=== PATIENT | female | born 1950 | race Caucasian/White ===

== ENCOUNTER 2020-02-09 13:23 | Outpatient (REF) | payer MEDICARE, SELFPAY ==
--- NOTE | 2020-02-09 13:31 | MM_ITS ---
EXAMINATION: MM SCREENING DIGITAL BREAST TOMOSYNTHESIS, BILATERAL CLINICAL INFORMATION: Screening. Asymptomatic. The lifetime risk of breast cancer based on the Tyrer-Cuzick Model is 4%. COMPARISON: Mammography: 11/18/2018, 09/23/2017 TECHNIQUE: Digital breast tomosynthesis is performed in both the craniocaudal and mediolateral oblique views along with computer-aided detection (CAD). Synthesized 2D images are generated from the tomosynthesis. Additional exaggerated right CC view is provided. FINDINGS: There are scattered areas of fibroglandular density (ACR BI-RADS breast composition Category b). There are no significant masses, abnormal calcifications, or other abnormalities. There is biopsy clip marker 3:00 left breast. Scattered benign punctate round calcifications are again noted in each breast. No significant changes. MM/MM tomosynthesis screening BI IMPRESSION: No mammographic evidence of malignancy. ASSESSMENT: BI-RADS 2: Benign RECOMMENDATION: Routine annual mammography screening. This patient's information was entered into a reminder system with a target due date for their next mammogram.
--- NOTE | 2020-02-09 13:32 | MM_ITS ---
EXAMINATION: BONE DENSITOMETRY CLINICAL INDICATION: Asymptomatic menopausal state. COMPARISON: None (current study represents initial baseline exam). TECHNIQUE: Using a Advaction DXA System (software version: 13.1) manufactured by [employer], dual-energy x-ray absorptiometry was performed of the lumbar spine and left hip. The images are of good technical quality. Summary results are attached. FINDINGS: AP SPINE L1-L2 (excluding L3 and L4): The data of L1-L4 has been changed to exclude the L3 and L4 vertebral bodies, because levocurvature and degenerative changes at these levels may cause overestimation of lumbar spine density. BMD 0.918 g/cm2, Z-score -0.9, T-score -2.1, osteopenia. LEFT FEMUR, NECK: BMD 0.884 g/cm2, Z-score 0.2, T-score -1.1, osteopenia. LEFT FEMUR, TOTAL: BMD 1.022 g/cm2, Z-score 1.1, T-score 0.1, normal. IDENTIFIED RISK FACTORS: Low calcium, family history (parental hip fracture), menopause, hysterectomy, bilateral oophorectomy, secondary osteoporosis. HISTORY OF FRACTURE: None listed. MEDICATIONS: None listed. MM/XR DEXA axial skeleton IMPRESSION: 1. DIAGNOSIS: Osteopenia based on the lowest T-score value of -2.1 in the lumbar spine applying World Health Organization criteria. 2. 10-YEAR FRACTURE RISK PREDICTION, FRAX: Major osteoporotic fracture (clinical spine, forearm, hip or shoulder) 14.1%. Hip fracture 1.2%. 3. Treatment Recommendations: NOF guidelines recommend consideration for treatment in postmenopausal women and men age 50 and older presenting with the following: -A hip or vertebral (clinical or morphometric) fracture. -T-score less than or equal to -2.5 at the femoral neck or spine after appropriate evaluation to exclude secondary causes. -Low bone mass at the hip or spine and a 10-year fracture probability by FRAX of greater than or equal to 3% for hip fracture or greater than or equal to 20% for major osteoporotic fracture based on the [place] adapted WHO algorithm. 4. Other Recommendations: All treatment decisions require clinical judgment and consideration of individual patient factors, including patient preferences, comorbidities, previous drug use, risk factors not captured in the FRAX model (e.g. frailty, falls, vitamin D deficiency, increased bone turnover, interval significant decline in bone density) and possible under or overestimation of fracture risk by FRAX. Additional medical evaluation for secondary cause of low bone mineral density may be appropriate. FUTURE SCAN RECOMMENDATION: People with diagnosed cases of osteoporosis or at high risk for fracture should have regular bone mineral density tests. For patients eligible for Medicare, routine testing is allowed once every 2 years. The testing frequency can be increased to one year for patients who have rapidly progressing disease, those who are receiving or discontinuing medical therapy to restore bone mass, or have additional risk factors.
== END 2020-02-09 13:24 | disposition home or self-care (01) ==
LOC: HO.MAMMO 13:23
PROVIDERS: PCP Nurse Practitioner Family; Visit Provider Nurse Practitioner Family
DX: Z13.820 Encounter for screening for osteoporosis (principal); Z78.0 Asymptomatic menopausal state; Z90.710 Acquired absence of both cervix and uterus; Z90.722 Acquired absence of ovaries, bilateral; Z12.31 Encounter for screening mammogram for malignant neoplasm of breast
CPT/HCPCS: 77063; 77067; 77080

== ENCOUNTER 2022-01-17 14:18 | Outpatient (REF) | payer MEDICARE, SELFPAY ==
--- NOTE | ~2022-01-17 | MM_ITS ---
EXAMINATION: MM SCREENING DIGITAL BREAST TOMOSYNTHESIS, BILATERAL CLINICAL INFORMATION: Screening. Asymptomatic. COMPARISON: Mammography: 02/09/2020, 11/18/2018, 09/23/2017 TECHNIQUE: Digital breast tomosynthesis is performed in both the craniocaudal and mediolateral oblique views along with computer-aided detection (CAD). Synthesized 2D images are generated from the tomosynthesis. FINDINGS: There are scattered areas of fibroglandular density (ACR BI-RADS breast composition Category b). There are no significant masses, abnormal calcifications, or other abnormalities. Parenchymal pattern is similar to prior studies. Small stable circumscribed nodule/intramammary node again noted mid upper outer right breast. There is a biopsy clip marker again noted posterior outer left breast. No developing density or architectural abnormality. MM/MM tomosynthesis screening BI IMPRESSION: No mammographic evidence of malignancy. ASSESSMENT: BI-RADS 2: Benign RECOMMENDATION: Routine annual mammography screening. This patient's information was entered into a reminder system with a target due date for their next mammogram.
== END 2022-01-17 14:19 | disposition home or self-care (01) ==
LOC: HO.MAMMO 14:18
PROVIDERS: PCP Nurse Practitioner Family; Visit Provider Nurse Practitioner Family
DX: Z12.31 Encounter for screening mammogram for malignant neoplasm of breast (principal)
CPT/HCPCS: 77063; 77067

== ENCOUNTER 2023-01-28 10:14 | Outpatient (REF) | payer MEDICARE, SELFPAY ==
--- NOTE | ~2023-01-28 | MM_ITS ---
EXAMINATION: MM SCREENING DIGITAL BREAST TOMOSYNTHESIS, BILATERAL CLINICAL INFORMATION: Screening. Asymptomatic. COMPARISON: Mammography: This study is compared with prior exams dating back to 2017. TECHNIQUE: Digital breast tomosynthesis is performed in both the craniocaudal and mediolateral oblique views along with computer-aided detection (CAD). Synthesized 2D images are generated from the tomosynthesis. FINDINGS: There are scattered areas of fibroglandular density (ACR BI-RADS breast composition Category b). There are no significant masses, abnormal calcifications, or other abnormalities. There is a tissue marker in the left breast from prior benign percutaneous biopsy. MM/MM tomosynthesis screening BI IMPRESSION: No mammographic evidence of malignancy. ASSESSMENT: BI-RADS BI-RADS 2 - Benign Findings RECOMMENDATION: Routine annual mammography screening. 1 year F/U This examination should not preclude the clinical evaluation of a suspicious palpable abnormality. This patient's information was entered into a reminder system with a target due date for their next mammogram.
== END 2023-01-28 10:15 | disposition home or self-care (01) ==
LOC: HO.MAMMO 10:14
PROVIDERS: PCP Nurse Practitioner Family; Visit Provider Nurse Practitioner Family
DX: Z12.31 Encounter for screening mammogram for malignant neoplasm of breast (principal)
CPT/HCPCS: 77063; 77067

== ENCOUNTER → 2023-01-28 10:15 | Outpatient (BNV) | payer MEDICARE, SELFPAY | PROVIDERS: PCP Nurse Practitioner Family; Visit Provider Radiology Diagnostic Radiology | DX: Z12.31 Encounter for screening mammogram for malignant neoplasm of breast (principal) | CPT/HCPCS: 77063; 77067 ==

== ENCOUNTER 2024-02-25 12:40 | Outpatient (REF) | payer MEDICARE, SELFPAY ==
--- NOTE | ~2024-02-25 | MM_ITS ---
EXAMINATION: BONE DENSITOMETRY CLINICAL INDICATION: Other specified disorders of bone density and structure, unspecified site. COMPARISON: Baseline BD dated 02/09/2020. TECHNIQUE: Using a Loopcam DXA System (software version: 13.1) manufactured by [employer], dual-energy x-ray absorptiometry was performed of the lumbar spine and left hip. The images are of good technical quality. Summary results are attached. FINDINGS: LEFT FEMUR, NECK: Current: BMD 0.897 g/cm2, Z-score 0.5, T-score -1.0, normal. Baseline: BMD 0.884 g/cm2. LEFT FEMUR, TOTAL: Current: BMD 0.997 g/cm2, Z-score 1.2, T-score -0.1, normal, 2.4% decrease from baseline (<5% change is not significant). Baseline: BMD 1.022 g/cm2. AP SPINE L1-L2 (excluding L3 and L4): The data of L1-L4 has been changed to exclude the L3 and L4 vertebral bodies, because at these levels may cause overestimation of lumbar spine density. Current: BMD 1.002 g/cm2, Z-score 0.0, T-score -1.4, osteopenia, 9.2% increase from baseline (<5% change is not significant). Baseline: BMD 0.918 g/cm2. IDENTIFIED RISK FACTORS: Height loss, low calcium intake, parental hip fracture, menopause, hysterectomy, bilateral oophorectomy. HISTORY OF FRACTURE: None listed. MEDICATIONS: None listed. MM/XR DEXA axial skeleton IMPRESSION: 1. DIAGNOSIS: Osteopenia based on the lowest T-score value of -1.4 in the lumbar spine applying World Health Organization criteria. 2. 10-YEAR FRACTURE RISK PREDICTION, FRAX: Major osteoporotic fracture (clinical spine, forearm, hip or shoulder) 13.3%. Hip fracture 2.8%. 3. Treatment Recommendations: NOF guidelines recommend consideration for treatment in postmenopausal women and men age 50 and older presenting with the following: -A hip or vertebral (clinical or morphometric) fracture. -T-score less than or equal to -2.5 at the femoral neck or spine after appropriate evaluation to exclude secondary causes. -Low bone mass at the hip or spine and a 10-year fracture probability by FRAX of greater than or equal to 3% for hip fracture or greater than or equal to 20% for major osteoporotic fracture based on the [place] adapted WHO algorithm. 4. Other Recommendations: All treatment decisions require clinical judgment and consideration of individual patient factors, including patient preferences, comorbidities, previous drug use, risk factors not captured in the FRAX model (e.g. frailty, falls, vitamin D deficiency, increased bone turnover, interval significant decline in bone density) and possible under or overestimation of fracture risk by FRAX. Additional medical evaluation for secondary cause of low bone mineral density may be appropriate. FUTURE SCAN RECOMMENDATION: People with diagnosed cases of osteoporosis or at high risk for fracture should have regular bone mineral density tests. For patients eligible for Medicare, routine testing is allowed once every 2 years. The testing frequency can be increased to one year for patients who have rapidly progressing disease, those who are receiving or discontinuing medical therapy to restore bone mass, or have additional risk factors. Electronically signed by: Deena Locke MD 02/25/2024 04:18 PM LEONARDO GORDILLO
== END 2024-02-25 12:41 | disposition home or self-care (01) ==
LOC: HO.MAMMO 12:40
PROVIDERS: PCP Nurse Practitioner Primary Care; Visit Provider Nurse Practitioner Primary Care
DX: Z12.31 Encounter for screening mammogram for malignant neoplasm of breast (principal); Z13.820 Encounter for screening for osteoporosis; Z78.0 Asymptomatic menopausal state; M85.89 Other specified disorders of bone density and structure, multiple sites
CPT/HCPCS: 77063; 77067; 77080

== ENCOUNTER → 2024-02-25 12:45 | Outpatient (BNV) | payer MEDICARE, SELFPAY | PROVIDERS: PCP Nurse Practitioner Primary Care; Visit Provider Internal Medicine | DX: Z12.31 Encounter for screening mammogram for malignant neoplasm of breast (principal) | CPT/HCPCS: 77063; 77067 ==

== ENCOUNTER 2025-03-12 06:31 | Emergency (ER) | payer MEDICARE, SELFPAY ==
--- NOTE | ~2025-03-12 | XR_ITS ---
CLINICAL HISTORY: cough 1 view chest Comparison: None Findings: Cardiac and mediastinal contours are normal. Mild interstitial prominence with scattered peribronchial thickening. No focal consolidation. No effusion. No pneumothorax. No acute osseous finding. Impression: Mild interstitial prominence with scattered peribronchial thickening. No focal consolidation. This document has been electronically signed by: Joey Vázquez MD on 03/12/2025 07:08:07
[2025-03-12 06:34] VITALS: BP 140/65; PULSE 98; RESP 20; TEMP 37.9; O2SAT 95; BMI 31.2
[2025-03-12 07:26] LABS: Resp Syncy Virus RNA Qual PCR NEGATIVE (Negative); SARS COV2 PCR INHOUSE NEGATIVE (Negative)
--- OUTSIDE RECORDS SUMMARY | 2025-03-12 08:09 | XMS_ITS | Patient Health Record ---
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 Name Role Phone Ajith Spring MD Primary Care Provider Abdiel Pressley [phone] Allergies Allergen (clinical drug ingredient) Drug/Non Drug Allergy documented on EMR Reaction Allergy Type Onset Date Status acetaminophen / oxycodone Percocet Unknown Drug Allergy Active Reason For Referral No Information Medications Medication SIG (Take, Route, Fr equency, Duration) Notes Start Date End Date Status Omeprazole 20mg Ac tive Lisinopril 10mg Acti ve Bentyl 20 MG Tablet 1 tablet Orally Four times a day; Duration: 30 day(s) 02/28/2011 Active Simvastatin 40mg Act latricia Sertraline HCl 100mg Active metFORMIN HCl 500mg Active Social History Tobacco Use: Social History Observation Description Date Details (start date - stop date) Current Smoker NA - NA Social History Drugs/Alcohol: Social Info Question Answer Notes Alcohol Screen Did you have a drink containing alcohol in the past year? Yes Points 1 Interpretation Negative How many drinks did you have on a typical day when you were drinking in the past year? 1 or 2 drinks (0 point) How often did you have a drink containing alcohol in the past year? Monthly or less (1 point) Tobacco Use: Social Info Question Answer Notes Tobacco Use/Smoking Patient is a current smoker How many cigarettes a day do you smoke? 5 or less How often do you smoke cigarettes? some days, but not every day Section Notes: Tobacco use one to 2 cigaret mukund, one time per week. Alcohol use, one drink every 6 months. Problems Problem Type SNOMED Code ICD Code Onset Dates Problem Status W/U Status Risk Notes Problem Hemorrhage of rectum and anus (340578872) Hemorrhage of rectum and anus (569.3) Active confirmed Problem Generalized abdominal pain (957934209) Abdominal pain, generalized (789.07) Active confirmed Plan Of Treatment No Information Insurance Providers Payer Name Payer Address Payer Phone Subscriber Number Group Number Insured Name Patient Relationship to Insured Coverage Start Date Coverage End Date [facility] [employer] CLAIMS [address] [place] [address] [id number] Self - patient is the insured Medical (General) History Medical History History ICD Code diabetes mellitus hypertension gastroesophageal reflux disease depression elevated cholesterol Surgical History Surgery Date(Month/Year) total hysterectomy in 2002 for precancer ous cells carpal tunnel repair foot surgery
--- OUTSIDE RECORDS SUMMARY | 2025-03-12 08:09 | XMS_ITS | Encounter Summary ---
Author Organization [facility] Address [address] [place] [address] [address] [place] [address] Phone Care Team Providers Care Senior Manager Name Role Phone Edwin Tovar CNP Primary Care Provider Encounter Details Date Type Department Care Team (Latest Contact Info) Description 05/15/2023 Ancillary Orders [facility] [address] [place] [address] Edwin Tovar, [place] [address] [facility] [place] [address] [email or web address] Pre-operative cardiovascular examination (Primary Dx); Type 2 diabetes mellitus without complication, with long-term current use of insulin; Arteriosclerotic cardiovascular disease; Bilateral hip pain; Memory changes; ALEJANDRA on CPAP; Bilateral hip pain Social History Tobacco Use Types Packs/Day Years Used Date Smoking Tobacco: Some Days Cigarettes 0 20 Started: 01/01/1995; Last attempted to quit: 01/01/2015 Smokeless Tobacco: Never Comments:Occasionally 4 cigarettes weekly and someday non, depends on stress level note 02/24/23 Alcohol Use Standard Drinks/Week Comments Yes 0 (1 standard drink = 0.6 oz pur e alcohol) 1-2 drinks, monthly or less Education Answer Date Recorded Are you interested in more education? Not on adalberto e 07/11/2022 Are you concerned about learning? Not on file 07/11/2022 No 07/11/2022 No 07/11/2022 Digital Access Answer Date Recorded No 08/06/2022 No 08/06/2022 Reliable internet access at home? Not on file 08/06/2022 Device with a working camera? Not on file Comments Unknown Sex and Gender Information Value Date Recorded Sex Assigned at Female 08/24/2020 5:08 PM EDT Legal Sex Female 9:59 PM EDT Gender Identity Female 08/24/2020 5:08 PM EDT Sexual Orientation Straight 08/24/2020 5: 08 PM EDT documented as of this encounter Plan of Treatment Upcoming Encounters Date Type Department Care Team (Late st Contact Info) Description 01/27/2025 Procedure Pass [facility], [address] [address] 04/25/2025 1:30 PM EST Appointment [address] [address] Edwin Tovar, MOUNTAIN OR GLACIER GUIDE [address] [place] [address], [address] [place] [address] 07/28/2025 2:00 PM EDT Office Visit [facility] [address] [place] [address] Edwin Tovar, MOUNTAIN [employer] GLACIER GUIDE [address] [place] [address], [address] [place] [id number] [email or web address] documented as of this encounter Results * XR HIPS 2+ VW EA BILAT PLUS PELVIS (05/15/2023 1:53 PM EST) Anatomical Region Laterality Modality Hip, Pelvis Computed Radiogr aphy 05/16/2023 3:05 PM EST Impressions 05/16/2023 3:07 PM EST Mild lateral acetabular bony proliferative change. Possible pincer-type acetabular morphology. Left-sided soft tissue mineralization around the greater trochanter, could reflect calcific gluteal tendinopathy. Partially visualized lumbar spine degenerative change. Narrative 05/16/2023 3:07 PM EST XR HIPS 2+ VW EA BILAT PLUS PELVIS Referring clinician's provided indication for this examination in Epic: Pain COMPARISON: None FINDINGS: PELVIS: Pelvic ring intact. No displaced fracture. Degenerative changes of the lower lumbar spine, sacroiliac joints, and pubic symphysis. RIGHT HIP: Joint space preserved. Mild lateral acetabular bony proliferative change. Gluteal enthesopathy at the greater trochanter. LEFT HIP: Joint space preserved. Mild lateral acetabular bony proliferative change. Gluteal enthesopathy at the greater trochanter. Procedure Note Kasia Loja MD - 05/16/2023 XR HIPS 2+ VW EA BILAT PLUS PELVIS Referring clinician's provided indication for this examination in Epic:Pain COMPARISON: None FINDINGS: PELVIS: Pelvic ring intact. No displaced fracture. Degenerative changes ofthe lower lumbar spine, sacroiliac joints, and pubic symphysis. RIGHT HIP: Joint space preserved. Mild lateral acetabular bonyproliferative change. Gluteal enthesopathy at the greater trochanter. LEFT HIP: Joint space preserved. Mild lateral acetabular bonyproliferative change. Gluteal enthesopathy at the greater trochanter. IMPRESSION: Mild lateral acetabular bony proliferative change. Possible pincer- typeacetabular morphology. Left-sided soft tissue mineralization around the greater trochanter, couldreflect calcific gluteal tendinopathy. Partially visualized lumbar spine degenerative change. Edwin Tovar MOUNTAIN OR GLACIER GUIDE IMG XR PELVIS Final Result documented in this encounter Visit Diagnoses Diagnosis Bilateral hip pain Pain in joint, pelvic region and thigh Pre-operative cardiovascular examination- Primary Type 2 diabetes mellitus without complication, with long-term current use of insulin Arteriosclerotic cardiovascular disease Unspecified cardiovascular disease Bilateral hip pain Pain in joint, pelvic region and thigh Memory changes ALEJANDRA on CPAP documented in this encounter Additional Health Concerns Infection Onset Date Last Indicated Resolved Time CoV-Risk 01/29/2024 01/29/2024 02/09/2024 1:24 AM EST Assessment Noted Time PHQ-2 Depression Total Score: 2 05/14/19 5:45 PM EST documented as of this encounter Care Teams Senior Manager Relationship Specialty Start Date End Date Edwin Tovar CNP [address] [place] [address], [address] [place] [address] [email or web address] PCP - General Family Medicine 05/15/23 documented as of this encounter Additional Source Comments The information contained in this document represents components of the legal health record. It is not the complete legal health record.[facility]
--- OUTSIDE RECORDS SUMMARY | 2025-03-12 08:09 | XMS_ITS | Encounter Summary ---
Author Organization [facility] Address [address] [place] [phone] Phone Care Team Providers Care Lean Coach Name Role Phone Edwin Tovar VENTILATION WORKER Primary Care Provider Encounter Details Date Type Department Care Team ([facility] st Contact Info) Description 01/29/2024 Procedure Pass [facility], [facility] Scan - [address] [address] Social History Tobacco Use Types Packs/Day Years [...] with a working camera? Not on file Intimate Partner Violence Answer Date R ecorded Denied Basic Needs Not on file 01/01/2024 In the past 12 months have y ou been in a relationship with a person who hurts, threatens, or tries to control you? No 01/01/2024 Worried food would run out Not on file 12/31 In the past 12 months have y ou been in a relationship with a person who hurts, threatens, or tries to control you? No 01/01/2024 Comments Unknown Sex and Gender Information Value Date Recorded Sex Assigned at Female 08/24/2020 5:08 PM EDT Legal Sex Female 9:59 PM EDT Gender Identity Female 08/24/2020 5:08 PM EDT Sexual Orientation Straight 08/24/2020 5: 08 PM EDT documented as of this encounter Plan of Treatment Upcoming Encounters Date Type Department Care Team (Late st Contact Info) Description 01/27/2025 Procedure Pass [address] [address] 04/25/2025 1:30 PM EST Appointment [address] [address] Edwin Tovar CNP [address] [place] [address], [address] [place] [address] [email or web address] 07/28/2025 2:00 PM EDT Office Visit [facility] [address] [place] [address] [place] [address] Edwin Tovar CNP [address] [place] [address], [address] [place] [phone] [email or web address] documented as of this encounter Visit Diagnoses Not on filedocumented in this encounter Additional Health Concerns Infection Onset Date Last Indicated Resolved Time CoV-Risk 01/29/2024 01/29/2024 02/09/2024 1:24 AM EST Assessment Noted Time PHQ-2 Depression Total Score: 0 01/07/20 7:48 PM EDT documented as of this encounter Care Teams Lean Coach Relationship Specialty Start Date End Date Edwin Tovar CNP [address] [place] [address], [address] [place] [address] PCP - General Family Medicine 05/15/23 documented as of this encounter Additional Source Comments The information contained in this document represents components of the legal health record. It is not the complete legal health record.[facility]
--- OUTSIDE RECORDS SUMMARY | 2025-03-12 08:09 | XMS_ITS | Clinical Summary ---
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 015 Active omeprazole (PRILOSEC) 40 MG capsule Take 40 mg by mouth daily as needed (every 3 days or so as needed). Active lancets Misc 2-3 daily 013 Active BLOOD-GLUCOSE METER (ONE TOUCH BASIC SYSTEM MISC) 011 Active ONETOUCH ULTRA2 METER Mis meterIndications: Type 2 diabetes mellitus without complications by Miscellaneous route as needed. 1 each 022 Active RESTASIS 0.05 % suspension Place 1 drop into each eye every 12 (twelve) hours. 023 Active insulin pen needles, disposable, 31 gauge x 5/16 Ndle 1 each by Miscellaneous route 2 (two) times a day. Dx:E11.9 180 each 3 024 Active naproxen sodium (ALEVE) 220 MG tabletIndications :Left wrist pain Take 1 tablet (220 mg total) by mouth 2 (two) times a day with meals. 60 tablet 2 024 2025 Active albuterol 90 mcg/actuation inhalerIndication s:Acute cough,Acute upper respiratory infection Inhale 2 puffs into the lungs every 4 (four) hours as needed for wheezing. 6.7 g 1 Active Additional Information Patient not taking.Reported on 09/23/2024 ANDRE STILL U-100 INSULIN 100 unit/mL (3 mL) InPn injection penIndications:Ty pe 2 diabetes mellitus without complication, with long-term current use of insulin INJECT 30 UNITS SUBCUTANEOUSLY TWO TIMES A DAY 60 mL 3 Active metoprolol succinate (TOPROL-XL) 25 MG 24 hr tabletIndications :Essential hypertension TAKE 1 TABLET DAILY 90 tablet 3 Active ONETOUCH ULTRA TEST Strp strips 1 each by Miscellaneous route every morning. onetouch ultra blue 100 strip 3 025 2025 Active nitroglycerin (NITROSTAT) 0.[address] 0.3 mg under the tongue every 5 (five) minutes as needed for chest pain. Active LORazepam (ATIVAN) 0.5 MG tablet TAKE 1 TABLET BY MOUTH EVERY DAY NEEDED FOR ANXIETY 90 tablet Active sertraline (ZOLOFT) 100 MG tablet TAKE 1 TABLET DAILY (TAKE 50MG DAILY FOR 3 WEEKS [id number] DAILY) 90 tablet 3 Active zolpidem (AMBIEN) 5 MG tabletIndications :Primary insomnia Take 1 tablet (5 mg total) by mouth nightly at bedtime as needed (insomnia). 90 tablet 025 2024 Active atorvastatin (LIPITOR) 20 MG tabletIndications :Mixed hyperlipidemia TAKE 1 TABLET DAILY 90 tablet 3 Active OZEMPIC 0.25 mg or 0.5 mg (2 mg/3 mL) subcutaneous injection pen INJECT 0.5MG SUBCUTANEOUSLYONCE WEEKLY (EVERY 7 DAYS) 9 mL Active Active Problems Problem Noted Date Diagnosed Date Osteopenia of multiple sites 01/27/2025 Obesity, Class II, BMI 35-39.9 06/03/2024 Class 2 severe obesity with body mass index (BMI) of 35 to 39.9 with serious comorbidity 06/03/2024 Generalized joint pain 02/26/2023 Assessment & Plan (02/26/2023 4:32 PM EST): C/o multiple joint aches- shoulder/ hips/ knees/ hand/ fingers. No acute illness/ fever/ Exam POS for OA changes- Will do labs to r/o systemic issue. She does not want to go to PT- although I think it would help her considerably particularly with the shoulder pain. No trauma, therefore xray not indicated. She can try tylenol 1000mg po bid, and on occasion use NSAID- warned against daily use, warning reviewed she also has topical Voltaren that she got from a friend- Shoulder impingement syndrome, right 02/26/2023 Assessment & Plan (02/26/2023 4:29 PM EST): + shoulder pain, impingement suspected. Rotator cuff is intact. Declines PT. Oral tylenol advised. A few exercises reviewed- if she wants PT she can reach out to us Cataracta 09/10/2022 Chronic pain of right knee 07/17/2018 History of melanoma 06/02/2017 Anxiety 03/03/2017 Arteriosclerotic cardiovascular disease 03/03/20 17 Anxiety with depression 03/03/2017 Gastroesophageal reflux disease without esophagi tis 03/03/2017 History of non-ST elevation myocardial infarctio n (NSTEMI) 03/03/2017 Mixed hyperlipidemia 03/03/2017 Obstructive sleep apnea syndrome 03/03/2017 Type 2 diabetes mellitus without complications 1 05/04/2016 Resolved Problems Problem Noted Date Diagnosed Date Resolved Date Seborrheic dermatitis of scalp 03/03/2017 01/03/2022 Encounters Date Type Department Care Team Description 01/27/2025 2:30 PM EST Office Visit [facility] [address] [place] [address] Edwin Tovar, [employer] WORKER Annual physical exam (Primary Dx); Type 2 diabetes mellitus without complication, with long-term current use of insulin; History of non-ST elevation myocardial infarction (NSTEMI); Arteriosclerotic cardiovascular disease; Class 1 obesity due to excess calories with serious comorbidity and body mass index (BMI) of 34.0 to 34.9 in adult; Screening for lung cancer; Former smoker; Mixed hyperlipidemia; Encounter for screening mammogram for malignant neoplasm of breast; Osteopenia of multiple sites; Colon cancer screening; Cold intolerance; Bilateral hip pain 01/26/2025 Refill [facility] [address] [place] [id number] Zoya Snow PA-C Medication Refill 01/26/2025 Refill [facility] [address] [place] [id number] Edwin Tovra CNP Medication Refill 12/21/2024 Orders Only [facility] [address] [place] [address] Provider, MD Elizabeth from Last 3 Months Immunizations Immunization Administration Dates Next Due COVID-19 (Pre-01/06) Conor Vaccine, rS-Ad26, P F 05/25/2020 INFLUENZA, SPLIT VIRUS, TRIVALENT PF 10/31/2016, 12/08/2015 INFLUENZA, SPLIT VIRUS, TRIVALENT W/ PRESERVATIV E IM 02/22/2014,01/29/2011 Influenza High-Dose Quadrivalent Preservative Fr ee IM 01/01/2023,01/03/2022 Influenza High-Dose Trivalent Preservative Free IM 12/15/2018,01/13/2018 Influenza Quadrivalent w/ Preservative IM 2014 Influenza trivalent preservative free intraderma l 12/22/2012 Pneumococcal conjugate PCV13 05/14/2019 Tdap 05/14/2019 Zoster recombinant 09/30/2019 Family History Medical History Relation Comments No Known Problems Brother 1 No Known Problems Brother 2 No Known Problems Daughter 1 No Known Problems Daughter 2 Dementia Mother Hypertension Mother Hypothyroidism Mother Melanoma Paternal Aunt No Known Problems Son Relation Status Comments Brother 1 Alive Brother 2 Alive Daughter 1 Alive Daughter 2 Alive Father Mother Paternal Aunt Son Alive Social History Tobacco Use Types Packs/Day Years Used Date Smoking Tobacco: Some Days Cigarettes 0 20 Started: 01/01/1995; Last attempted to quit: 01/01/2015 Smokeless Tobacco: Never Tobacco Cessation:Ready to Q uit: Not Asked; Counseling Given: Not Answered Comments:Occasionally 4 cigarettes weekly and someday non, [...] ecorded Denied Basic Needs Not on file 01/25/2025 In the past 12 months have y ou been in a relationship with a person who hurts, threatens, or tries to control you? No 01/25/2025 Worried food would run out Not on file 01/25 In the past 12 months have y ou been in a relationship with a person who hurts, threatens, or tries to control you? No 01/25/2025 Comments Unknown Sex and Gender Information Value Date Recorded Sex Assigned at Female 08/24/2020 5:08 PM EDT Legal Sex Female 9:59 PM EDT Gender Identity Female 08/24/2020 5:08 PM EDT Sexual Orientation Straight 08/24/2020 5: 08 PM EDT Last Filed Vital Signs Vital Sign Reading Time Taken Comments Blood Pressure 118/56 01/27/2025 2:29 PM EST Pulse 71 01/27/2025 2:29 PM EST Temperature 35.6 C (96 F) 01/27/2025 2:29 PM EST Respiratory Rate 16 01/01/2023 1:19 PM EDT Oxygen Saturation 97% 01/27/2025 2:29 PM EST Inhaled Oxygen Concentration - - Weight 81.4 kg (179 lb 6.4 oz) 01/27/2025 2:29 P M EST Height 153 cm (5' 0.24 ) 09/23/2024 1:52 PM EDT Body Mass Index 34.76 09/23/2024 1:52 PM EDT Plan of Treatment Upcoming Encounters Date Type Department Care Team (Late st Contact Info) Description 01/27/2025 Procedure Pass [facility], Ct Scan - [address] [address] 04/25/2025 1:30 PM EST Appointment [facility] - [facility] [address] [place] [address] Edwin Tovar, [employer] WORKER [address] [facility] [place] [place] [address] 07/28/2025 2:00 PM EDT Office Visit [facility] [address] [facility] [place] [address] Edwin Tovar, [employer] WORKER [address] [facility] [place] [address] [email or web address] Health Maintenance Due Date Last Done Comments COLONOSCOPY 1997 FIT TEST 1997 FOBT 1997 SIGMOIDOSCOPY 1997 VIRTUAL COLONOSCOPY 1997 RSV VACCINE (1 - Risk 50-74 years 1-dose series) 2002 PNEUMOCOCCAL VACCINES (50+ years) (2 of 2 - PPSV23, PCV20, or PCV21) 07/09/2019 05/14/2019 ZOSTER VACCINES (2 of 2) 11/25/2019 09/30/2019 INFLUENZA VACCINE (#1) 2024 , 01/03/2022, 12/15/2018, Additional history exists COVID-19 VACCINE ( season) 2024 01/19/2023, 02/27/2021, 05/25/2020 URINE MICROALBUMIN/CREATININE RATIO 01/07/2025 01/08/2024, 10/02/2017 HEMOGLOBIN A1C 05/23/2025 11/23/2024, 05/16, 01/08/2024, Additional history exists BLOOD PRESSURE 07/27/2025 01/27/2025 LIPID PANEL 11/23/2025 11/23/2024, 08/15, 07/19/2022, Additional history exists DIABETIC EYE EXAM 12/20/2025 12/20/2024, , 03/19/2023, Additional history exists DEPRESSION SCREENING 01/27/2026 01/27/2025 SMOKING Hx and SMOKELESS TOBACCO SCREENING 01/27/2026 01/27/2025 MAMMOGRAM 01/27/2027 01/27/2025, 02/14, 01/08/2024, Additional history exists COLOGUARD 02/05/2028 02/04/2025 COLORECTAL CANCER SCREENING 02/05/2028 Adult Td,Tdap Booster 05/14/2029 05/14/2019 HEPATITIS C SCREENING Completed 10/01/2021 OSTEOPOROSIS SCREENING INITIAL (ONE-TIME) Completed 03/12/2024, 02/09/2020, 08/18/2003 HEPATITIS A VACCINES Aged Out No long er eligible based on patient's age to complete this topic HIB VACCINES Aged Out No longer eligi ble based on patient's age to complete this topic MENINGOCOCCAL VACCINES (ACWY) Aged Out No longer eligible based on patient's age to complete this topic MENINGOCOCCAL VACCINES (B) Aged Out N o longer eligible based on patient's age to complete this topic Medical Devices Not on file Procedures Procedure Name Priority Date/Time Associated Diagnosis Comments COLOGUARD ([employer]) (NON-MGB) Routine 02/04/2025 5:45 PM EST Colon cancer screening BI MAMMOGRAM SCREENING (BILATERAL) Routine 01/27/2025 2:42 PM EST Encounter for screening mammogram for malignant neoplasm of breast HM DIABETES EYE EXAM FOR RESULT ENTRY ONLY Routine 12/20/2024 9:03 AM EDT HEMOGLOBIN A1C Routine 11/23/2024 9:54 AM EDT Type 2 diabetes mellitus without complication, with long-term current use of insulin LIPID PANEL Routine 11/23/2024 9:54 AM EDT Type 2 diabetes mellitus without complication, with long-term current use of insulin BD DXA MONITORING Routine 03/12/2024 12: 27 PM EST Osteopenia of multiple sites MICROALBUMIN/CREATIN INE RATIO, RANDOM URINE Routine 01/08/2024 2:28 PM EDT Type 2 diabetes mellitus without complication, with long-term current use of insulin OUTSIDE HEPATITIS C VIRUS SCREENING Routine 10/01/2021 from Last 3 Months or Most Recently Relevant to Health Maintenance Results * Cologuard ([employer]) (Non-MGB) (02/04/2025 5:45 PM EST) Cologuard Results Negative Negative 025 2:22 AM EST [facility] (CLIA #:[id number]) Comment: The Cologuard Plus (TM) test was performed on this specimen. NEGATIVE TEST RESULT. A negative (normal) Cologuard Plus result means the patient has a [id number] chance of having colorectal cancer (CRC) or advanced precancer (polyps or lesions that could become cancer). Negative is the normal value (reference range) for this assay. Guidelines recommend screening again 3 years after a negative Cologuard Plus result. Continued screening increases the chance of finding CRC early or preventing it entirely. A clinical validation study showed the Cologuard Plus test is effective at ruling out CRC. Out of every 10,000 patients testing negative, approximately 2 will be falsely reassured that they do not have CRC, and out of every 100 patients testing negative, approximately 7 patients will be falsely reassured they do not have advanced precancer. TEST DESCRIPTION: The Cologuard Plus test is a multi-target stool DNA (mt-sDNA) test that analyzes DNA and hemoglobin biomarkers in stool. It uses a proprietary algorithm to qualitatively detect CRC and advanced precancer. It is FDA-approved and indicated for use in adults 45 years or older at average risk for CRC. A positive (abnormal) result should be followed by a colonoscopy. Patients with a negative (normal) result should screen again in 3 years. False positive and false negative results may occur. The USPSTF recommends the Cologuard test as a CRC screening option. Their modeling estimates that screening with the test every 3 years from ages 45-85 could prevent up to 73% of CRC and avoid up to 85% of CRC deaths. A 18,911-patient clinical trial found the Cologuard Plus test effectively detects CRC and precancer. The study found the test was 95% sensitive for CRC, 43% sensitive for advanced precancer, and had a 91% specificity (Cologuard Plus Clinician Brochure. [employer]. [place], [place].). Visit https://www.p3dsystems/references/cologuard-plus for more test information, references, warnings, and precautions. Stool (Per Rectum) 02/04/2025 5:45 PM EST 02/07/2025 11:37 AM EST Edwin Tovar CNP BODY FLUIDS AND STOOLS ORDERABLES Final Result Performing Organization Address City/[facility] [address]/[facility] Co de Phone Number [facility] (CLIA #:[id number]) [address] [place] [address], [facility] [phone] * DIABETES EYE EXAM FOR RESULT ENTRY ONLY (12/20/2024 9:03 AM EDT) Historical Provider HEALTH MAINTENANCE Edited Result - Final * (ABNORMAL) Hemoglobin A1c (11/23/2024 9:54 AM EDT) HEMOGLOBIN A1C 7.4(H) 4.3 - 5.8 % [facility] Blood 11/23/2024 9:54 AM EDT 11/23/2024 9:56 AM EDT Edwin Tovar CNP LAB BLOOD BKR ORDERABL ES Final Result Performing Organization Address [facility] [address]/[facility] Co de Phone Number [address] [address] * (ABNORMAL) Lipid panel (11/23/2024 9:54 AM EDT) HDL 58 mg/dL [facility] Comment: Interpretation <40 mg/dL: Low HDL cholesterol (major risk factor for CHD) Greater than or equal to 60 mg/dL: High HDL cholesterol ( negative risk factor for CHD) HDL - cholesterol is affected by a number of factors, e.g. smoking, excerise, hormones, sex and age. CHOLESTEROL 131 0 - 240 mg/dL [facility] TRIGLYCERIDES 93 30 - 160 mg/dL [facility] LDL 54 50 - 129 mg/dL [facility] Comment: LDL levels in terms of risk for coronary heart disease: <100 mg/dL: Optimal 100-129 mg/dL: Near or above optimal 130-159 mg/dL: Borderline high 160-189 mg/dL: High >190 mg/dL: Very High CARDIAC RISK RATIO 2.3(L) 3.3 - 4.4 C [facility] Blood 11/23/2024 9:54 AM EDT 11/23/2024 9:55 AM EDT Edwin Tovar CNP LAB BLOOD BKR ORDERABL ES Final Result Performing Organization Address [facility] [address]/[facility] Co de Phone Number [address] [phone] * DXA Monitoring (03/12/2024 12:27 PM EST) Anatomical Region Laterality Modality Bone Density Bone Density Edwin Tovar CNP IMG BD BONE DENSITY DE XA Final Result * HM MAMMOGRAPHY FOR RESULT ENTRY ONLY (02/25/2024 9:02 AM EST) Edwin Tovar CNP HEALTH MAINTENANCE Estiven shine Result - Final * Microalbumin/creatinine ratio, random urine (01/08/2024 2:28 PM EDT) URINE MICROALBUMIN <1.2 0 - 2.3 mg/dL [facility] URINE CREATININE 181 mg/dL [facility] MICROALB/CRE RATIO NOT CALCULATED 0 - 20 mg/g Cre [facility] Comment:due to Microalbumin <1.2 Urine (Urine) 01/08/2024 2:2 8 PM EDT 01/08/2024 2:30 PM EDT Edwin Tovar CNP LAB URINE ORDERABLES F inal Result Performing Organization Address City/[facility] [address]/[facility] Co de Phone Number [address] [phone] * Outside Hepatitis C Virus Screening (10/01/2021) Hepatitis C Screening - External Neg us Historical Provider LAB BLOOD ORDERABLES Lakisha mistry Result from Last 3 Months or Most Recently Relevant to Health Maintenance Insurance [employer] SU[employer] MEDICARE PART A & B [employer] SUPPLEMENT MEDICARE PART A & B [employer] SUPPLEMENT MEDICARE PART A & B [employer] SUPPLEMENT MEDICARE PART A & B [employer] SUPPLEMENT MEDICARE PART A & B [employer] SUPPLEMENT MEDICARE PART A & B [employer] SUPPLEMENT MEDICARE PART A & B [employer] SUPPLEMENT MEDICARE PART A & B [employer] SUPPLEMENT MEDICARE PART A & B Care Teams Clarifier Operator Helper Relationship Specialty Start Date End Date Edwin Tovar CNP [address] [place] [address], [address] [place] [address] PCP - General Family Medicine 05/15/23 Additional Source Comments The information contained in this document represents components of the legal health record. It is not the complete legal health record.[facility]
--- NOTE | 2025-03-12 08:27 | ED_ITS ---
HPI - URI/Sore Throat General Chief Complaint: Upper Respiratory Symptoms Stated Complaint: bad cough Time Seen by Provider: 03/12/25 08:09 Source: patient Mode of arrival: ambulatory Limitations: no limitations History of Present Illness ED Provider: TRINITY Mars HPI Narrative: Chief Complaint: ?Body aches, pain, cough, congestion, fever, and trouble sleeping.? History of Present Illness: The patient is a male who developed body aches, generalized pain, cough, congestion, fever, and difficulty sleeping two days ago. Multiple household members became ill on , and the patient reports significant sick contacts. He was evaluated and tested positive for Influenza A earlier during this visit. No additional systemic complaints were voiced during the encounter. Related Data Previous Rx's ?Medication ?Instructions ?Recorded albuterol sulfate 90 mcg/actuation 2 inh inhalation Q4 -6H PRN 03/12/25 breath activated powder inhaler shortness of breath or wheezing #1 ea benzonatate 100 mg capsule 100 mg PO BID PRN cough #20 caps 03/12/25 prednisone 20 mg tablet 40 mg (2 x 20 mg) PO DAILY 5 days 03/12/25 #10 tabs Allergies Allergy/AdvReac Type Severity Reaction Status Date / Time Penicillins (PENICILLINS) Allergy Mild RASH Verified 03/12/25 06:35 oxycodone (From PERCOCET) Allergy Unknown RASH Verified 03/12/25 06:35 Review of Systems Review of Systems: Review of Systems: ? Constitutional: Positive for fever, body aches. Denies chills, weight loss. ? Eyes: Denies visual changes, eye pain, redness, discharge. ? ENT: Positive for congestion, cough. Denies sore throat, ear pain, hearing loss. ? Cardiovascular: Denies chest pain, palpitations, edema. ? Respiratory: Positive for cough, congestion. Denies shortness of breath, wheezing, hemoptysis. ? Gastrointestinal: Denies nausea, vomiting, diarrhea, abdominal pain. ? Genitourinary: Denies dysuria, hematuria, frequency, urgency. ? Musculoskeletal: Positive for generalized pain/aches. Denies joint swelling, focal weakness. ? Skin: Denies rash, lesions, itching. ? Neurological: Denies headache, dizziness, numbness, tingling, focal deficits. ? Psychiatric: Difficulty sleeping. Denies anxiety, depression, suicidal ideation. ? Endocrine: Denies polyuria, polydipsia, heat/cold intolerance. ? Hematologic/Lymphatic: Denies easy bruising, bleeding, lymphadenopathy. ? Allergy/Immunology: Denies known allergies, anaphylaxis. Yes all other systems are reviewed and are negative [facility] Social History Social History Advance Directives: No Advance Directives Information Provided: Yes Physical Exam Exam: Exam: ? Constitutional: Well-appearing male in no acute distress, alert and oriented. ? Eyes: Conjunctivae clear, no scleral icterus. ? Neck: Supple, no lymphadenopathy. ? Respiratory: Lungs clear to auscultation bilaterally, no rales, wheezes, or rhonchi. No increased work of breathing. ? Cardiovascular: Regular rate and rhythm, no murmurs, rubs, or gallops. No peripheral edema. ? Abdomen: Soft, non-tender, no organomegaly. ? Musculoskeletal: No focal tenderness, normal range of motion. ? Skin: Warm, dry, no rashes or lesions. ? Neurological: Alert, oriented, cranial nerves II-XII grossly intact, no focal deficits. Vital Signs: Vital Signs: Last Vital Signs Temp 100.3 F 03/12/25 06:34 Pulse 98 03/12/25 06:34 Resp 20 03/12/25 06:34 BP 140/65 H 03/12/25 06:34 Pulse Ox 95 03/12/25 06:34 O2 Del Method Room Air 03/12/25 06:34 BMI result Body Mass Index 31.2 Course Reevaluation(s) Reevaluation #1: Patient positive for influenza A supportive measures discussed with patient. She will get an inhaler Tessalon Perles as well as prednisone. She is out of the 48 hours of Tamiflu Educated patient on diagnosis and treatment plan, answered all question, patient verbalizes understanding. At this time patient will be discharged home, advised to return with new or worsening symptoms. Educated on worrisome signs and symptoms and when to return. At this time I feel comfortable discharge home. Time: 08:31 Medications Administered Discontinued Medications Generic Name Dose Route Start Last Admin Trade Name Freq PRN Reason Stop Dose Admin Acetaminophen 650 mg 03/12/25 06:37 03/12/25 06:39 Acetaminophen 325 Mg Tablet PO 03/12/25 06:38 650 mg ONCE ONE Administration Medical Decision Making Medical Decision Making [facility] Narrative: Problem #1: Influenza A infection Assessment: Laboratory-confirmed Influenza A with fever, cough, body aches, and congestion. CXR shows no pneumonia. Plan: * Prescribe oral steroids for symptomatic relief. * Provide inhaler therapy (type unspecified in encounter) to assist with respiratory symptoms. * Prescribe cough medication for comfort. * Education: Discussed that current influenza vaccine may not cover all circulating strains. * Counseling: Provided education on infection control, symptom monitoring, and when to seek further care. * Coordination of care: Advised patient to follow up with nephrology for any worsening symptoms or complications related to underlying renal condition. * Follow-up: Return to ED for worsening respiratory symptoms, persistent fever, or new concerns. Routine follow-up with primary care and nephrology recommended. Problem #2: Cough / Upper respiratory symptoms Assessment: Acute viral cough associated with Influenza A. Plan: * Management addressed under Problem #1 interventions. * Patient education provided regarding expected duration of cough and supportive care measures. * Follow-up: See above. Diagnostic testing included rapid influenza assay and chest X-ray to rule out pneumonia and assess for complications. Medication choices (oral steroids, inhaler, cough suppressant) were selected for symptomatic relief, with consideration of comorbidities. Risk assessment included evaluation for secondary bacterial infection and monitoring for respiratory distress. Patient education provided regarding influenza strain coverage and expected course. Counseling included discussion of medication risks/benefits and coordination of care with nephrology as needed. Time spent on evaluation and management: 35 minutes, including history, exam, review of diagnostic studies, counseling, and coordination of care. Differential Diagnosis Differential Diagnoses: The differential diagnosis associated with the presentation includes (see below ) * 1. Influenza A infection (confirmed): Supported by positive rapid influenza test and classic symptoms (fever, body aches, cough, congestion). This is the primary diagnosis. * 2. COVID-19: Considered due to overlapping symptoms (fever, cough, body aches, congestion). Deprioritized because of a positive influenza test and lack of known COVID exposures; no specific COVID testing performed at this visit. * 3. Bacterial pneumonia: Considered due to fever and cough. Ruled out by normal chest X-ray and absence of focal findings on exam. * 4. Acute bronchitis: Considered due to cough and congestion. Deprioritized as symptoms are better explained by confirmed influenza infection. * 5. Other viral respiratory infections (e.g., RSV, adenovirus): Considered due to similar presentation. Deprioritized given laboratory confirmation of Influenza A. Admission/Observation Consideration of admission/observation: Escalation of care including admission/observation considered No indication Lab Data MDM Lab Attestation statement: I reviewed the patient's lab results. + influenza Labs: Lab Results 03/12/25 Range/Units 06:42 Influenza Type A (PCR) POSITIVE A (Negative) Influenza Type B (PCR) NEGATIVE (Negative) RSV RNA Qual (PCR) NEGATIVE (Negative) SARS-CoV-2 RNA (RT-PCR) NEGATIVE (Negative) Independent Interpretation I performed an independent interpretation of an: Plain X-Ray (Chest X-ray: No radiographic evidence of pneumonia; findings consistent with a viral process.) Radiology Impression Discussion of test interpretation with radiology: I have reviewed the radiologist's reading. Discharge Plan Discharge Clinical Impression: Influenza Patient Disposition: Home, Self-Care Instructions: Influenza (DC) Additional Instructions: Take your medications as prescribed. If you were prescribed antibiotics today, it is important that you take your medication to their entirety, do not skip any doses, do not finish them early. Follow-up with your primary care provider this week. Return to the emergency department with new or worsening symptoms. In case of emergency call 911 ' Findings: Cardiac and mediastinal contours are normal. Mild interstitial prominence with scattered peribronchial thickening. No focal consolidation. No effusion. No pneumothorax. No acute osseous finding. Impression: Mild interstitial prominence with scattered peribronchial thickening. No focal consolidation. Prescriptions: New prednisone 20 mg tablet 40 mg PO DAILY 5 Days Qty: 10 0RF albuterol sulfate 90 mcg/actuation aerosol powdr breath activated 2 inh inhalation Q4-6H PRN (Reason: shortness of breath or wheezing) Qty: 1 0 RF benzonatate 100 mg capsule 100 mg PO BID PRN (Reason: cough) Qty: 20 0RF Referrals: Edwin Tovar NP [Primary Care Provider, Internal Medicine] Print Language: Danish
[2025-03-12 08:34] VITALS: BP 138/68; PULSE 92; RESP 20; TEMP 37.6; O2SAT 95
== END 2025-03-12 08:35 | disposition home or self-care (01) ==
PROVIDERS: Emergency Provider Emergency Medicine; PCP Nurse Practitioner Primary Care
DX: J10.1 Influenza due to other identified influenza virus with other respiratory manifestations (principal); R05.9 Cough, unspecified; Z03.818 Encounter for observation for suspected exposure to other biological agents ruled out
CPT/HCPCS: 71045; 87637; 99283

== ENCOUNTER → 2025-03-12 06:53 | Outpatient (BNV) | payer MEDICARE, SELFPAY | PROVIDERS: PCP Nurse Practitioner Primary Care; Visit Provider Radiology Vascular & Interventional Radiology | DX: R05.9 Cough, unspecified (principal) | CPT/HCPCS: 71045 ==